=== PATIENT | female | born 1970 | race Caucasian/White ===

== ENCOUNTER 2024-02-16 08:00 | Emergency (ER) | payer OTHER ==
[2024-02-16] MEDS ORDERED: DIAZEPAM 2 MG TABLET ONE (08:36)
[2024-02-16] MEDS ORDERED: NA CHLORIDE 0.9% 1,000 ML ONE (08:36)
[2024-02-16 08:53] LABS: Absolute Lymphocytes (CBC) 1.5 K/uL (0.7-4.9); Absolute Monocytes 0.5 K/uL (0.1-1.3); Absolute Neutrophil 6.4 K/uL (1.8-8.0); Basophils % 0.5 % (0-1.3); Eosinophils % 0.4 % (0-4.4); Hematocrit 42.9 % (36.0-45.0); Hemoglobin 14.7 g/dL (12.0-15.0); MCH 30.8 pg (27.0-35.0); MCHC 34.3 g/dL (32.0-36.0); MCV 89.7 fL (80-100); MPV 8.3 fL (7.6-11.3); Monocytes % 5.4 % (3.3-12.3); Neutrophils % 75.7 % (41.7-73.7); Nucleated Red Blood Cells % 0.1 % (0-0); Platelets 385 thou/uL (152-406); RBC Red Blood Cell Count 4.78 M/uL (3.86-4.86); Red Cell Distribution Width 13.7 % (12.1-15.2)
[2024-02-16 09:20] LABS: Anion Gap 9.6 mEq/L (5.0-15.0); Magnesium 1.9 mg/dL (1.6-2.4); Potassium 3.6 mEq/L (3.5-5.1); Troponin High Sensitivity 3.4 pg/mL (<58.9)
--- NOTE | 2024-02-16 09:37 | RAD REPORT ---
EXAMINATION: ONE VIEW CHEST XR CLINICAL INDICATION: PALPITATIONS TECHNIQUE: Frontal chest projection is submitted. Examination is limited by patient positioning and t echnique. COMPARISON: No prior exam. FINDINGS: The lungs are well inflated and clear. The heart is normal in size. No displaced fractures identified . IMPRESSION: No acute intrathoracic abnormalities.
--- NOTE | 2024-02-16 10:03 | EDPHYS ---
Physician Documentation [facility] Name: Tiara Wells Age: 53 yrs Sex: Female : 1970 Arrival Date: 02/16/2024 Time: 08:00 Bed 7 Private MD: ED Physician Gelacio Hanson HPI: 02/15 09:58 This 53 yrs old Female presents to ER via Ambulatory with complaints of Palpitations. rn 09:58 The patient presents with a history of heart racing. Context: The symptoms occur at rn rest, with anxiety. Onset: The symptoms/episode began/occurred 4 day(s) ago. Duration: The patient or guardian reports multiple episodes. Modifying factors: The symptoms are aggravated by anxiety, caffeine, stress. Associated signs and symptoms: Pertinent positives: anxiety, Pertinent negatives: chest pain, fever, SOB, syncope, vertigo, vomiting. Severity of symptoms: At their worst the symptoms were moderate in the emergency department the symptoms are unchanged. The patient has not experienced similar symptoms in the past. Patient reports 4 days of palpitations and heart racing with anxiety. Reports started Zoloft last week, took it for 3 days then this happen so stopped it. Also 2 nights after starting Zoloft she had multiple espresso martinis. Feels anxiousness with palpitations. No chest pain or shortness of breath. No recent illness. No trauma. No history of DVT or PE. No recent surgery or immobilization.. WORK STUDY STUDENT: 08:17 LMP N/A - Post-menopause, Not iw Historical: - Allergies: 08:16 No Known Allergies; iw - Home Meds: 08:16 omeprazole 40 mg Oral capsule,delayed release (e.c.) daily [Active]; famotidine 40 mg iw Oral tablet daily [Active]; - PSHx: 08:16 ankle; iw - Immunization history:: Adult Immunizations not up to date. - Infectious Disease History:: Denies. - Social history:: Smoking status: Patient denies any tobacco usage or history of. - Family history:: not pertinent. - Hospitalizations: : No recent hospitalization is reported. ROS: 09:58 Constitutional: Negative for fever, chills, and weight loss, Eyes: Negative for injury, rn pain, redness, and discharge, Neck: Negative for injury, pain, and swelling, Cardiovascular: Positive for palpitations Respiratory: Negative for shortness of breath, cough, wheezing, and pleuritic chest pain, Abdomen/GI: Negative for abdominal pain, nausea, vomiting, diarrhea, and constipation, MS/Extremity: Negative for injury and deformity, Skin: Negative for injury, rash, and discoloration, Neuro: Negative for headache, weakness, numbness, tingling, and seizure, Exam: 09:29 ECG was reviewed by the Attending Physician. rn 09:58 Constitutional: This is a well developed, well nourished patient who is awake, alert, rn anxious and emotional Head/Face: Normocephalic, atraumatic. ENT: Dry mucous membranes Cardiovascular: Regular rate and rhythm. No pulse deficits. Respiratory: No increased work of breathing, no retractions or nasal flaring. Abdomen/GI: Soft, non-tender MS/ Extremity: Pulses equal, no cyanosis. Neuro: Awake and alert, GCS 15 Vital Signs: 08:14 BP 154 / 94; Pulse 109; Resp 18; Pulse Ox 98% on R/A; Weight 64.41 kg; Height 5 ft. 3 iw in. ; Pain 0/10; 09:03 BP 147 / 82; Pulse 83; Resp 16 S; Pulse Ox 98% on R/A; kc6 10:26 BP 136 / 77; Pulse 88; Resp 17; Temp 98.4(O); Pulse Ox 99% on R/A; ap3 08:14 Body Mass Index 25.15 (64.41 kg, 160.02 cm) iw 08:14 Pain Scale: Adult iw MDM: 08:08 Medical Screening Exam initiated rn 09:58 Differential diagnosis: arrythmia, dehydration, stress disorder. Data reviewed: vital rn signs, nurses notes, lab test result(s), EKG, radiologic studies, plain films, and as a result, I will discharge patient. Counseling: I had a detailed discussion with the patient and/or guardian regarding the historical points, exam findings, and any diagnostic results supporting the discharge/admit diagnosis, lab results, radiology results, the need for outpatient follow up, to return to the emergency department if symptoms worsen or persist or if there are any questions or concerns that arise at home. Response to treatment: the patient's symptoms have markedly improved after treatment, and as a result, I will discharge patient. Special discussion: I discussed with the patient/guardian in detail that at this point there is no indication for admission to the hospital. It is understood, however, that if the symptoms persist or worsen the patient needs to return immediately for re-evaluation. Based on the history and exam findings, there is no indication for further emergent testing or inpatient evaluation. I discussed with the patient/guardian the need to see the psychiatrist for further evaluation of the symptoms. 10:03 ED course: Workup negative, markedly improved after Valium and fluids. Now rn asymptomatic.. 02/15 08:31 Order name: Basic Metabolic Panel; Complete Time: 02/15 08:31 Order name: CBC with Diff; Complete Time: 02/15 08:31 Order name: Magnesium; Complete Time: 02/15 08:31 Order name: NT PRO-BNP; Complete Time: 02/15 08:31 Order name: Troponin HS; Complete Time: 02/15 08:31 Order name: D-Dimer; Complete Time: 02/15 08:31 Order name: XRAY Chest (1 view); Complete Time: 09:47 02/15 08:31 Order name: EKG; Complete Time: 08: 02/15 08:31 Order name: Cardiac monitoring; Complete Time: : 02/15 08:31 Order name: EKG - Nurse/Tech; Complete Time: 08:34 02/15 08:31 Order name: IV Saline Lock; Complete Time: 08:48 02/15 08:31 Order name: Labs collected and sent; Complete Time: 08:48 02/15 08:31 Order name: O2 Per Protocol; Complete Time: : 02/15 08:31 Order name: O2 Sat Monitoring; Complete Time: : rn EC:29 Rate is 90 beats/min. Rhythm is regular. QRS [place] is Normal. [place] interval is normal. QRS rn interval is normal. QT interval is normal. No Q waves. T waves are Normal. No ST changes noted. Clinical impression: Normal ECG. Interpreted by me. Reviewed by me. Administered Medications: 08:48 Drug: NS 0.9% IV 1000 ml IV at 1000 ml once; to be given as a bolus over 60 minutes kc6 Route: IV; Rate: 1000 ml; Site: right antecubital; 10:26 Follow up: IV Status: Completed infusion; IV Intake: 1000ml ap3 08:48 Drug: Diazepam PO 2 mg PO once Route: PO; kc6 10:06 Follow up: Response: No adverse reaction; Anxiety decreased; RASS: Alert and Calm (0) kc6 Disposition Summary: 02/16/24 10:02 Discharge Ordered Notes: Location: Home rn Problem: new rn Symptoms: have improved rn Condition: Stable rn Diagnosis - Palpitations rn - Anxiety disorder, unspecified rn Followup: rn - With: Private Physician - When: As needed - Reason: Recheck today's complaints, Re-evaluation by your physician Discharge Instructions: - Discharge Summary Sheet rn - Palpitations rn - Generalized Anxiety Disorder, Adult rn - Managing Anxiety, Adult rn Forms: - Medication Reconciliation Form rn - 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
--- NOTE | 2024-02-16 10:03 | ER ---
Nurse's Notes [facility] Name: Tiara Wells Age: 53 yrs Sex: Female : 1970 Arrival Date: 02/16/2024 Time: 08:00 Bed 7 Private MD: Diagnosis: Palpitations;Anxiety disorder, unspecified Presentation: 02/15 08:14 Chief complaint: Patient states: feels very anxious, can't calm down, has had iw palpitations on and off since Thursday, she was started on zoloft last week but she stopped it on Thursday , was seen at urgent care on Thursday , felt better and now the palpitations started again. Coronavirus screen: At this time, the client does not indicate any symptoms associated with coronavirus-19. Ebola Screen: No symptoms or risks identified at this time. Initial Sepsis Screen: Does the patient meet any 2 criteria? No. Patient's initial sepsis screen is negative. Does the patient have a suspected source of infection? No. Patient's initial sepsis screen is negative. Risk Assessment: Do you want to hurt yourself or someone else? Patient reports no desire to harm self or others. Onset of symptoms was February 12, 2024. 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 - Infectious Disease History:: Denies. - Social history:: Smoking status: Patient denies any tobacco usage or history of. - Family history:: not pertinent. - Hospitalizations: : No recent hospitalization is reported. Screenin:23 [facility] ED Fall Risk Assessment (Adult) History of falling in the last 3 months, ap3 including since admission No falls in past 3 months (0 pts) Confusion or Disorientation No (0 pts) Intoxicated or Sedated No (0 pts) Impaired Gait No (0 pts) Mobility Assist Device Used No (0 pt) Altered Elimination No (0 pt) Score/Fall Risk Level 0 - 2 = Low Risk Oriented to surroundings, Maintained a safe environment, Educated pt \T\ family on fall prevention, incl call for assistance when getting out of bed, Assessed \T\ reinforced patient's understanding of fall precautions, Hourly rounding (assess needs \T\ fall precautionary measures) done, Used ambulatory aids as needed (educated on \T\ assisted with), Used gait belt as appropriate. Abuse screen: Denies threats or abuse. Nutritional screening: No deficits noted. Tuberculosis screening: No symptoms or risk factors identified. Assessment: 08:22 General: Appears comfortable, Behavior is calm, cooperative, appropriate for age. Pain: ap3 Denies pain. Neuro: Level of Consciousness is awake, alert, obeys commands, Oriented to person, place, time, situation, Appropriate for age Gait is steady, Speech is normal. Cardiovascular: Patient's skin is warm and dry. Cardiovascular: Reports palpitations, Pulses are absent in right radial artery and left radial artery Rhythm is regular. Respiratory: Airway is patent Respiratory effort is even, unlabored, Respiratory pattern is regular, symmetrical. 09:03 Reassessment: Patient appears in no apparent distress at this time. No changes from kc6 previously documented assessment. Patient and/or family updated on plan of care and expected duration. Pain level reassessed. Patient is alert, oriented x 3, equal unlabored respirations, skin warm/dry/pink. Vital Signs: 08:14 BP 154 / 94; Pulse 109; Resp 18; Pulse Ox 98% on R/A; Weight 64.41 kg; Height 5 ft. 3 iw in. ; Pain 0/10; 09:03 BP 147 / 82; Pulse 83; Resp 16 S; Pulse Ox 98% on R/A; kc6 10:26 BP 136 / 77; Pulse 88; Resp 17; Temp 98.4(O); Pulse Ox 99% on R/A; ap3 08:14 Body Mass Index 25.15 (64.41 kg, 160.02 cm) iw 08:14 Pain Scale: Adult iw ED Course: 08:02 Patient arrived in ED. im 08:08 Gelacio Hanson MD is Attending Physician. rn 08:16 Triage completed. iw 08:17 Arm band placed on. iw 08:22 Lenka Xie, JANICE is Primary Nurse. ap3 08:22 Client placed on continuous cardiac and pulse oximetry monitoring. NIBP monitoring ap3 applied. cardiac monitor technician on. Pulse ox on. NIBP on. Door closed. Noise minimized. Warm blanket given. 08:22 EKG done, by ED staff, reviewed by Gelacio Hanson MD. ap3 08:23 Patient has correct armband on for positive identification. Placed in gown. Bed in low ap3 position. Call light in reach. Provided Education on: fall risk eduation. 08:49 Missed attempt(s): 22 gauge in right forearm. Inserted saline lock: 20 gauge in right kc6 antecubital area, using aseptic technique. Blood collected. Flushed with 10 mL NS. 09:26 XRAY Chest (1 view) In Process Unspecified. EDMS 10:27 No provider procedures requiring assistance completed. IV discontinued, intact, ap3 bleeding controlled, No redness/swelling at site. Pressure dressing applied. Administered Medications: 08:48 Drug: NS 0.9% IV 1000 ml IV at 1000 ml once; to be given as a bolus over 60 minutes kc6 Route: IV; Rate: 1000 ml; Site: right antecubital; 10:26 Follow up: IV Status: Completed infusion; IV Intake: 1000ml ap3 08:48 Drug: Diazepam PO 2 mg PO once Route: PO; kc6 10:06 Follow up: Response: No adverse reaction; Anxiety decreased; RASS: Alert and Calm (0) kc6 Medication: 08:23 VIS not applicable for this client. ap3 Intake: 10:26 IV: 1000ml; Total: 1000ml. ap3 Outcome: 10:02 Discharge ordered by . rn 10:27 Discharged to home ambulatory, ap3 10:27 Condition: good 10:27 Discharge instructions given to patient, Instructed on discharge instructions, follow up and referral plans. Demonstrated understanding of instructions, follow-up care, 10:27 Patient left the ED. ap3 Signatures: Dispatcher [employer] EDMS Jing Ch RN Gelacio Chung MD MD rn Prokisch, Amanda, RN RN ap3 Manasa Geiger RN RN kc6 Anusha Rogers
[2024-02-16 14:05] VITALS: BP 136/77; TEMP 98.4; O2SAT 99
--- NOTE | 2024-02-17 11:37 | EKG ---
Test Date: 2024-02-16 Test Time: 08:16:27 Pin Worker: ALP MEASUREMENT RESULTS: Intervals: Rate: 90 CO: 156 QRSD: 80 QT: 360 QTc: 440 [place]: P: 68 CO: 156 QRS: 54 T: 44 INTERPRETIVE STATEMENTS: Normal sinus rhythm Normal ECG No previous ECG available for comparison Electronically Signed On 02-17-24 11:32:26 CHARTER REPRESENTATIVE by Calvin Smith
== END 2024-02-16 10:27 | disposition home or self-care (01) ==
LOC: ER 08:00
DX: F41.9 Anxiety disorder, unspecified (principal)
CPT/HCPCS: 96361; 93005; 85025; 80048; 36415; 83735; 85379; 84484; 83880; 71045; 96360; 99285; J7030